=== PATIENT | female | born 1975 ===

== ENCOUNTER 2017-10-05 12:00 | Outpatient (CLI) | payer OTHER | END 2017-10-05 13:00 | disposition home or self-care (01) | LOC: NUCLEAR 12:00 | DX: C73 Malignant neoplasm of thyroid gland (principal) | CPT/HCPCS: 78020; 78018; A9528 ==

== ENCOUNTER → 2023-11-15 07:33 | Outpatient (CLI) | payer OTHER | END | disposition home or self-care (01) | LOC: NUCLEAR 07:33 | DX: D44.0 Neoplasm of uncertain behavior of thyroid gland (principal) ==